=== PATIENT | female | born 1940 | race African-American/Black ===

== ENCOUNTER 2024-11-03 18:47 | Inpatient (IN) | payer MEDICARE, MEDICAID ==
[~2024-11-03] VITALS: Ht 165.1 cm; Wt 43.2 kg
[~2024-11-03 18:47] MED LIST: AMLO-138 PO; BRIM15DR2 EACHEYE; DORZ10DR9 EACHEYE; INSU100I70 SUBCUT; LEVO50TA8 PO; NETA2.5D LEFTEYE; OMEP20CA14 PO
[2024-11-03 18:51] VITALS: RESP 27
[2024-11-03] MEDS: MAGNESIUM 2 G PREMIX 50 ML IV ONE (19:02)
[2024-11-03] MEDS: METHYLPREDNISOLONE SOD SUCC 125MG/2ML (ACT-O-VIAL) IV ONE (19:02)
[2024-11-03] MEDS: PIPERACILLIN/TAZO 3.375G/50ML 50 ML IV ONE (19:02)
[2024-11-03] MEDS: SODIUM CHLORIDE 0.9% (SEPSIS BOLUS) IV ONE (19:05)
[2024-11-03 19:19] LABS: BASOPHILS % 0.3 % (0.0-2.0); EOSINOPHILS % 1.8 % (0.0-5.0); HEMATOCRIT. 37.0 % (36.0-48.0); HEMOGLOBIN. 11.7 g/dL (12.0-16.0); LYMPHOCYTES % 10.8 % (20.0-50.0); MEAN PLATELET VOLUME 9.3 fl (7.4-10.4); MONOCYTES % 10.1 % (2.0-8.0); NEUTROPHILS % 77.0 % (40.0-76.0); PLATELET 390 x1000/uL (130-400); RED BLOOD CELL COUNT 3.85 mill/uL (4.2-5.4); RED CELL DISTRIBUTION WIDTH 21.2 % (11.6-14.6)
[2024-11-03] MEDS: IPRATROPIUM BROMIDE (0.02%) 0.5MG/2.5ML NEB HHN SCH (19:20)
[2024-11-03 19:34] LABS: CREATININE 0.6 mg/dL (0.6-1.0)
[2024-11-03 19:35] LABS: TROPONIN I HIGH SENSITIVITY 8 ng/L (3.0-34); UREA NITROGEN BLOOD 15 mg/dL (9-23)
[2024-11-03 19:35] LABS: INR 0.9
[2024-11-03 19:36] LABS: ASPARTATE AMINOTRANSFERASE 37 IU/L (<34)
[2024-11-03 19:37] LABS: BILIRUBIN DIRECT < 0.1 mg/dL (<=3.0); BILIRUBIN TOTAL 0.3 mg/dL (0.1-1.0); PROTEIN TOTAL 6.5 g/dL (6.0-8.3)
[2024-11-03] MEDS: VANCOMYCIN 1G PREMIX 200 ML IV ONE (19:58)
[2024-11-03] MEDS: ALBUTEROL (0.083%) 2.5MG/3ML NEB HHN SCH (20:22)
[2024-11-03 20:35] LABS: BG BASE EXCESS 5.8 mmol/L (-2.0-3.0); BG CARBOXYHEMOGLOBIN 0.8 % (0.5-1.5); BG DEOXYHEMOGLOBIN 3.8 % (0.0-5.0); BG FRACTION INSPIRED OXYGEN 40; BG HCO3 ACT 35.7 mmol/L (21.0-28.0); BG METHEMOGLOBIN 0.2 % (0.5-1.5); BG OXYGEN SATURATION 96.2 % (94.0-98.0); BG OXYHEMOGLOBIN 95.2 % (94.0-98.0); BG PCO2 83.3 mmHg (32.0-45.0); BG PH 7.250 (7.350-7.450); BG PO2 95.8 mmHg (83.0-108.0); BG SAMPLE SITE RIGHT RADIAL; BG TOTAL HEMOGLOBIN 12.5 g/dL (12.0-16.0); BG VENT MODE MASK - BIPAP; BG VENT RATE 12.0 set
[2024-11-03 21:30] VITALS: RESP 32
[2024-11-03 22:40] VITALS: BP_SYST 104; BP_SYST 141; BP_DIAS 103; PULSE 104; RESP 23; TEMP 36.14; TEMP 36.6; O2SAT 98
[2024-11-03] MEDS ORDERED: MORPHINE SULFATE 2 MG/ML INJ (NOT FOR IM USE) IV PRN (23:00)
[2024-11-03] MEDS ORDERED: ACETAMINOPHEN 325MG TABLET PO PRN (23:00)
[2024-11-03] MEDS ORDERED: MAGNESIUM/ALUMINUM HYDROXIDE/SIMETHICONE 30ML UDC PO PRN (23:00)
[2024-11-03] MEDS ORDERED: CLONIDINE 0.1MG TABLET PO PRN (23:00)
[2024-11-03] MEDS ORDERED: DEXTROSE 50% WATER 50ML SYRINGE IV PRN (23:00)
[2024-11-03] MEDS ORDERED: HYDROCODONE/ACETAMINOPHEN 5/325MG TABLET PO PRN (23:00)
[2024-11-03] MEDS ORDERED: ONDANSETRON HCL 4MG/2ML INJ IV PRN (23:00)
[2024-11-03] MEDS ORDERED: ZOLPIDEM TARTRATE 5MG TABLET PO PRN (23:00)
[2024-11-03] MEDS: AMLODIPINE 10MG TABLET PO SCH (23:00)
[2024-11-03] MEDS: METHYLPREDNISOLONE SOD SUCC 40MG/ML (ACT-O-VIAL) IV SCH (23:54)
[2024-11-04] VITALS (15 sets, daily range): BP systolic 101–151; BP diastolic 52–76; PULSE 79–96; RESP 17–27; TEMP 36–37; O2SAT 95–100
[2024-11-04] MEDS: BRIMONIDINE 0.2% OPHTH DROPS 10ML BOTHEYE SCH (06:11)
[2024-11-04] MEDS: PIPERACILLIN/TAZO 3.375G/50ML 50 ML IV SCH (06:11)
[2024-11-04 07:13] LABS: HEMATOCRIT. 31.8 % (36.0-48.0); HEMOGLOBIN. 10.5 g/dL (12.0-16.0); MEAN PLATELET VOLUME 9.5 fl (7.4-10.4); PLATELET 285 x1000/uL (130-400); RED BLOOD CELL COUNT 3.30 mill/uL (4.2-5.4); RED CELL DISTRIBUTION WIDTH 21.2 % (11.6-14.6)
[2024-11-04 07:29] LABS: CREATININE 0.6 mg/dL (0.6-1.0); UREA NITROGEN BLOOD 18 mg/dL (9-23)
[2024-11-04] MEDS: BLOOD SUGAR DIAGNOSTIC STRIP TEST SCH (07:52)
[2024-11-04] MEDS: LEVOTHYROXINE SODIUM 25MCG TABLET PO SCH (08:02)
[2024-11-04] MEDS: INSULIN LISPRO 100 UNITS/ML SUBCUT SCH (08:10)
[2024-11-04 09:25] LABS: BG BASE EXCESS 7.0 mmol/L (-2.0-3.0); BG CARBOXYHEMOGLOBIN 0.3 % (0.5-1.5); BG DEOXYHEMOGLOBIN 0.6 % (0.0-5.0); BG FRACTION INSPIRED OXYGEN 40; BG HCO3 ACT 33.3 mmol/L (21.0-28.0); BG METHEMOGLOBIN 0.3 % (0.5-1.5); BG OXYGEN SATURATION 99.4 % (94.0-98.0); BG OXYHEMOGLOBIN 98.8 % (94.0-98.0); BG PCO2 56.8 mmHg (32.0-45.0); BG PH 7.386 (7.350-7.450); BG PO2 162.7 mmHg (83.0-108.0); BG SAMPLE SITE RIGHT RADIAL; BG TOTAL HEMOGLOBIN 10.6 g/dL (12.0-16.0); BG VENT MODE MASK - BIPAP; BG VENT RATE 20.0 set
[2024-11-04] MEDS: PANTOPRAZOLE SODIUM 40 MG/VIAL IV SCH (09:30)
[2024-11-04] MEDS: DORZOLAM/TIMOLOL 2%/0.5% OPHTH DROPS 10ML EACHEYE SCH (09:31)
[2024-11-04] MEDS: ENOXAPARIN 40MG/0.4ML SYR SUBCUT SCH (09:31)
[2024-11-04] MEDS: INSULIN GLARGINE 100 UNITS/ML SUBCUT SCH (10:06)
[2024-11-04] MEDS ORDERED: IPRATROPIUM/ALBUTEROL 0.5-3(2.5)MG/3ML NEB HHN PRN (13:30)
[2024-11-04 15:16] LABS: LYMPHOCYTES % MANUAL 1.0 % (20.0-60.0); MONOCYTES % MANUAL 2.0 % (2.0-8.0); NEUTROPHILS % MANUAL 97.0 % (45.0-75.0); PLATELET ESTIMATE NORMAL
[2024-11-04] MEDS: IPRATROPIUM/ALBUTEROL 0.5-3(2.5)MG/3ML NEB HHN SCH (19:41)
[2024-11-05] VITALS (16 sets, daily range): BP systolic 99–132; BP diastolic 43–69; PULSE 63–97; RESP 15–27; TEMP 36.4–36.6; O2SAT 90–100
[2024-11-05] MEDS: VANCOMYCIN 750MG/150ML (BAXTER) IV SCH ×2 (01:59→22:24)
[2024-11-05 06:53] LABS: HEMATOCRIT. 29.4 % (36.0-48.0); HEMOGLOBIN. 9.8 g/dL (12.0-16.0); MEAN PLATELET VOLUME 9.4 fl (7.4-10.4); PLATELET 304 x1000/uL (130-400); RED BLOOD CELL COUNT 3.11 mill/uL (4.2-5.4); RED CELL DISTRIBUTION WIDTH 21.2 % (11.6-14.6)
[2024-11-05 06:55] LABS: CREATININE 0.5 mg/dL (0.6-1.0)
[2024-11-05 06:56] LABS: UREA NITROGEN BLOOD 16 mg/dL (9-23)
[2024-11-05] MEDS: GUAIFENESIN-DM 200MG-20MG/10ML UDC PO SCH (09:57)
[2024-11-05 16:32] LABS: BAND% 1.0 % (1.0-6.0); LYMPHOCYTES % MANUAL 1.0 % (20.0-60.0); MONOCYTES % MANUAL 1.0 % (2.0-8.0); NEUTROPHILS % MANUAL 97.0 % (45.0-75.0); PLATELET ESTIMATE NORMAL
[2024-11-05 18:10] LABS: CLARITY URINE CLEAR (CLEAR); COLOR URINE YELLOW (YELLOW); GLUCOSE URINE NEGATIVE (NEGATIVE); KETONES URINE TRACE (NEGATIVE); LEUKOCYTE ESTERASE URINE NEGATIVE (NEGATIVE); NITRITE URINE NEGATIVE (NEGATIVE); OCCULT BLOOD URINE NEGATIVE (NEGATIVE); PH URINE 6.0 (4.5-8.0); PROTEIN URINE TRACE (NEGATIVE); SPECIFIC GRAVITY URINE 1.038 (1.005-1.030); UROBILINOGEN URINE 0.2 E.U./dL (0.2-1.0)
[2024-11-05 18:30] LABS: *AMPHETAMINES SCREEN URINE NEGATIVE (NEGATIVE); *BARBITURATES SCREEN URINE NEGATIVE (NEGATIVE); *BENZODIAZEPINES SCREEN URINE NEGATIVE (NEGATIVE); *COCAINE SCREEN URINE NEGATIVE (NEGATIVE)
[2024-11-05 18:31] LABS: CANNABINOID URINE SCREEN NEGATIVE (NEGATIVE); ECSTASY MDMA SCREEN URINE NEGATIVE (NEGATIVE); METHADONE URINE SCREEN NEGATIVE (NEGATIVE); OPIATES URINE SCREEN NEGATIVE (NEGATIVE); PHENCYCLIDINE URINE SCREEN NEGATIVE (NEGATIVE)
[2024-11-05 18:40] LABS: BACTERIA URINE NONE SEEN; MUCUS URINE TRACE /lpf (< = 2+); RBC URINE NONE SEEN /hpf (0-2); SQUAMOUS EPITHELIAL CELL URINE RARE /lpf (RARE/1+); WBC URINE 0-2 /hpf (0-2)
[2024-11-06] VITALS (16 sets, daily range): BP systolic 96–142; BP diastolic 41–86; PULSE 62–80; RESP 13–28; TEMP 36.2–37.2; O2SAT 96–100
[2024-11-06 06:43] LABS: HEMATOCRIT. 26.1 % (36.0-48.0); HEMOGLOBIN. 8.8 g/dL (12.0-16.0); MEAN PLATELET VOLUME 9.3 fl (7.4-10.4); PLATELET 272 x1000/uL (130-400); RED BLOOD CELL COUNT 2.72 mill/uL (4.2-5.4); RED CELL DISTRIBUTION WIDTH 21.1 % (11.6-14.6)
[2024-11-06 06:47] LABS: CREATININE 0.6 mg/dL (0.6-1.0); UREA NITROGEN BLOOD 19 mg/dL (9-23)
[2024-11-06] MEDS ORDERED: NALOXONE HCL 0.4MG/ML VIAL IV PRN (10:45)
[2024-11-06 11:17] LABS: BAND% 2.0 % (1.0-6.0); LYMPHOCYTES % MANUAL 2.0 % (20.0-60.0); MONOCYTES % MANUAL 6.0 % (2.0-8.0); NEUTROPHILS % MANUAL 90.0 % (45.0-75.0); PLATELET ESTIMATE NORMAL
[2024-11-06] MEDS: METHYLPREDNISOLONE SOD SUCC 40MG/ML (ACT-O-VIAL) IV SCH (22:23)
[2024-11-07] VITALS (8 sets, daily range): BP systolic 113–129; BP diastolic 47–79; PULSE 63–77; RESP 18–20; TEMP 36.5–37.6; O2SAT 98–100
[2024-11-07 08:09] LABS: BG BASE EXCESS 5.1 mmol/L (-2.0-3.0); BG CARBOXYHEMOGLOBIN 0.1 % (0.5-1.5); BG DEOXYHEMOGLOBIN 1.3 % (0.0-5.0); BG FLOW(L/min) 2.00 L/min; BG FRACTION INSPIRED OXYGEN 28; BG HCO3 ACT 30.2 mmol/L (21.0-28.0); BG METHEMOGLOBIN 0.0 % (0.5-1.5); BG OXYGEN SATURATION 98.7 % (94.0-98.0); BG OXYHEMOGLOBIN 98.6 % (94.0-98.0); BG PCO2 47.0 mmHg (32.0-45.0); BG PH 7.426 (7.350-7.450); BG PO2 133.9 mmHg (83.0-108.0); BG SAMPLE SITE RIGHT RADIAL; BG TOTAL HEMOGLOBIN 10.5 g/dL (12.0-16.0); BG VENT MODE NASAL CANNULA
[2024-11-07] MEDS: ENOXAPARIN 30MG/0.3ML SYR SUBCUT SCH (08:57)
[2024-11-07] MEDS ORDERED: SULF1TAB48 MT (12:17)
[2024-11-07] MEDS ORDERED: OMEP20CA14 PO (12:17)
[2024-11-07] MEDS ORDERED: DORZ10DR9 EACHEYE (12:17)
[2024-11-07] MEDS ORDERED: LEVO50TA8 PO (12:17)
[2024-11-07] MEDS ORDERED: NETA2.5D LEFTEYE (12:17)
[2024-11-07] MEDS ORDERED: AMLO-138 PO (12:17)
[2024-11-07] MEDS ORDERED: METH4TAB95 MT (12:17)
[2024-11-07] MEDS ORDERED: INSU100I70 SUBCUT (12:17)
[2024-11-07] MEDS ORDERED: BRIM15DR2 EACHEYE (12:17)
[2024-11-07] MEDS: PREDNISONE 10MG TABLET PO SCH (18:29)
== END 2024-11-07 22:10 | disposition hospice, home (50) | DRG 871 ==
LOC: ER 18:57 → 5EST 21:16 → EDBEDREQTM 21:27 → EDBEDREQ 21:27 → 7WST 11-06 14:30
PROVIDERS: ADMIT Internal Medicine; ATTEND Internal Medicine
PROC: 5A09357 Assistance with Respiratory Ventilation, Less than 24 Consecutive Hours, Continuous Positive Airway Pressure (ICD-10-PCS; principal; 2024-11-03)
PROC: 5A09357 Assistance with Respiratory Ventilation, Less than 24 Consecutive Hours, Continuous Positive Airway Pressure (ICD-10-PCS; 2024-11-05)
DX: A41.9 Sepsis, unspecified organism (principal); J18.9 Pneumonia, unspecified organism; J96.22 Acute and chronic respiratory failure with hypercapnia; J96.21 Acute and chronic respiratory failure with hypoxia; J44.1 Chronic obstructive pulmonary disease with (acute) exacerbation; J44.0 Chronic obstructive pulmonary disease with (acute) lower respiratory infection; H40.9 Unspecified glaucoma; E78.5 Hyperlipidemia, unspecified; E11.9 Type 2 diabetes mellitus without complications; R13.10 Dysphagia, unspecified; Z20.822 Contact with and (suspected) exposure to COVID-19; J38.4 Edema of larynx; D64.9 Anemia, unspecified; E89.0 Postprocedural hypothyroidism; Z51.5 Encounter for palliative care; I11.0 Hypertensive heart disease with heart failure; I25.10 Atherosclerotic heart disease of native coronary artery without angina pectoris; Z66 Do not resuscitate; K21.9 Gastro-esophageal reflux disease without esophagitis; I50.9 Heart failure, unspecified; Z55.6 Problems related to health literacy; Z85.819 Personal history of malignant neoplasm of unspecified site of lip, oral cavity, and pharynx; Z85.21 Personal history of malignant neoplasm of larynx; Z79.899 Other long term (current) drug therapy
CPT/HCPCS: 36415; 36600; 70491; 71045; 80048; 80076; 80202; 80305; 81003; 82375; 82805; 82962; 83605; 83735; 83880; 84145; 84484; 85025; 86850; 86900; 87077; 87186; 87426; 93005; 93970; 94070; 94640; 94660; 97162; 99291; A4606; J1650; J1815; J2470; J2543; J2919; J3373; J3475; J7512